=== PATIENT | female | born 1965 | race Caucasian/White ===

== ENCOUNTER → 2017-10-29 | Outpatient (CLI) | payer SELFPAY ==
[~2017-10-29] MED LIST: MOTRIN600 MG PO; ROBAXIN750 MG PO; ULTRAM50 MG PO
== END | disposition home or self-care (01) ==
LOC: RAD 14:00
DX: I65.22 Occlusion and stenosis of left carotid artery (principal); R93.1 Abnormal findings on diagnostic imaging of heart and coronary circulation
CPT/HCPCS: 93880